=== PATIENT | female | born 1975 | race Caucasian/White ===

== ENCOUNTER 2017-01-02 23:21 | Emergency (ER) | payer OTHER ==
[2017-01-02 23:24] VITALS: BP 138/76; PULSE 84; RESP 16; TEMP 98.6; O2SAT 100
[2017-01-03] MEDS ORDERED: SODIUM CHLOR 0.9% 1000 ML INJ 1,000 ML IV ONE (00:38)
[2017-01-03 01:03] LABS: AUTOMATED NEUTROPHIL # 4.5 TH/MM3 (1.8-7.7); BASOPHIL # 0.1 TH/MM3 (0-0.2); BASOPHIL % 0.9 % (0.0-2.0); EOSINOPHIL # 0.1 TH/MM3 (0-0.4); EOSINOPHIL % 0.9 % (0.0-4.0); HEMATOCRIT 40.8 % (35.0-46.0); HEMO FLAGS DIFF FINAL; LYMPH % 36.2 % (9.0-44.0); MEAN CELL VOLUME 93.8 FL (80.0-100.0); MEAN CORPUSCULAR HEMOGLOBIN 32.3 PG (27.0-34.0); MEAN CORPUSCULAR HGB CONC 34.4 % (32.0-36.0); MONO % 7.5 % (0.0-8.0); NEUT % 54.5 % (16.0-70.0); PLATELET COUNT 238 TH/MM3 (150-450); RED BLOOD COUNT 4.35 MIL/MM3 (4.00-5.30); RED CELL DISTRIBUTION WIDTH 12.8 % (11.6-17.2); WHITE BLOOD COUNT 8.2 TH/MM3 (4.0-11.0)
[2017-01-03 01:04] LABS: BACTERIA, URINE RARE /hpf; BLOOD, URINE NEG (NEG); COMMENT (UR) CULT NOT INDICATED; CULTURE IF INDICATED CULT NOT INDICATED; GLUCOSE,URINE NEG (NEG); KETONE, URINE NEG (NEG); NITRITE,URINE NEG (NEG); SQUAMOUS EPITHELIAL CELL URINE 1 /hpf (0-5); URINE COLOR LIGHT-YELLOW (YELLW/STRAW)
[2017-01-03 01:37] LABS: ALKALINE PHOSPHATASE 59 U/L (45-117); BETA HCG QUANT 22868 MIU/ML (0-5); GLOMERULAR FILTRATION RATE 79 ML/MIN (>89); TOTAL BILIRUBIN ADULT 0.2 MG/DL (0.2-1.0)
[2017-01-03 01:39] LABS: ALT (GPT) 15 U/L (10-53); ANION GAP 7 MEQ/L (5-15); AST (GOT) 17 U/L (15-37); BICARBONATE 26.8 MEQ/L (21.0-32.0); BLOOD UREA NITROGEN 14 MG/DL (7-18); CHLORIDE 103 MEQ/L (98-107); POTASSIUM 3.9 MEQ/L (3.5-5.1); SODIUM (NA) 137 MEQ/L (136-145)
--- NOTE | 2017-01-03 02:21 | PD ---
HPI Chief Complaint: Related Problem Time Seen by Provider: 00:32 Travel History International Travel<30 days: No Contact w/Intl Traveler<30days: No Traveled to known affect area: No History of Present Illness HPI The patient is a 41 year old female with one elective who presents to the [facility] emergency department with a history of vaginal spotting that began earlier this evening. She reports that over the last 2 days she has had some mild cramping. She reports that 2 weeks ago she found out that she was . Her last muscle cycle was November 18. On review of systems, the patient denies having any other vaginal discharge, fevers, cough , congestion, neck pain, chest pain, shortness of breath, abdominal pain, vomiting, diarrhea, urinary symptoms, or neurologic symptoms. [facility] Past Medical History Narrative Medical The patient's past medical history is significant for having sharp tissue down in the pelvis which she reports was removed laparoscopically, history of C- section. Diminished Hearing: No Reproductive: Yes (? ENDOMETRIOSIS) Tetanus Vaccination: Unknown Influenza Vaccination: No ?: : 1 Para: 1 Past Surgical History Narrative Surgical The patient's past surgical history is significant for a , history of laparoscopy for scar tissue removal in her pelvis. Section: Yes (X1) Gynecologic Surgery: Yes (REMOVE SCARRING FROM UTERUS) Social History Alcohol Use: Yes (occasionally) Tobacco Use: No (reportedly quit when she found out she was ) Substance Use: Yes (MARIJUANA) Allergies-Medications (Allergen,Severity, Reaction): Uncoded Allergies: DECONGESTIONS (Allergy, Severe, Irritability/Anxiety, 01/03/17) Reported Meds & Prescriptions Reported Meds & Active Scripts Active No Active Prescriptions or Reported Medications Review of Systems Except as stated in HPI: all other systems reviewed are Neg General / Constitutional: No: Fever Eyes: No: Visual changes HENT: No: Headaches Cardiovascular: No: Chest Pain or Discomfort Respiratory: No: Shortness of Breath Gastrointestinal: No: Abdominal Pain Genitourinary: Positive: Pelvic Pain, Vaginal Bleeding, No: Dysuria, Discharge Musculoskeletal: No: Pain Skin: No Rash Neurologic: No: Weakness Psychiatric: No: Depression Endocrine: No: Polydipsia Hematologic/Lymphatic: No: Easy Bruising Physical Exam Narrative General: The patient is a well-developed well-nourished female in no acute distress. Head and Neck exam: Head is normocephalic atraumatic. Eyes: EOMI, pupils are equal round and reactive to light. Nose: Midline septum with pink mucous membranes Mouth: Dentition unremarkable. Moist mucus membranes. Posterior oropharynx is not erythematous. No tonsillar hypertrophy. Uvula midline. Airway patent. Neck: No palpable lymphadenopathy. No nuchal rigidity. No thyromegaly. Cardiovascular: Regular rate and rhythm without murmurs, gallops, or rubs. Lungs: Clear to auscultation bilaterally. No wheezes, rhonchi, or rales. Abdomen: Soft, without tenderness to palpation in all 4 quadrants of the abdomen. No guarding, rebound, or rigidity. Normal bowel sounds are audible. No tenderness on palpation of McBurney's point. Extremities: No clubbing, cyanosis, or edema. 2+ pulses in all 4 extremities. No calf tenderness on palpation. Back: No spinous process tenderness to palpation. No costovertebral angle tenderness to palpation. Neurologic Exam: Grossly nonfocal. Skin Exam: No rash noted. Intact skin that is warm and dry. Gynecologic exam: The patient was placed in the dorsal lithotomy position. Her external genitalia were examined. She had no evidence of rash or lesions. The speculum was placed into her vagina and the cervix was identified. She had a brown, older appearing blood noted in the posterior vaginal vault, no active bleeding. No cervical friability. On Bimanual exam: she has no cervical motion tenderness. No adnexal tenderness or prominence noted on palpation. No uterine tenderness or enlargement noted on palpation. Data Data Last Documented VS Vital Signs Date Time Temp Pulse Resp B/P (MAP) Pulse Ox O2 Delivery O2 Flow Rate FiO2 01/02/17 23:24 98.6 84 16 138/76 (96) 100 Orders Orders Beta Hcg (Quant/Titer) (01/03/17 00:38) Complete Blood Count With Diff (01/03/17 00:38) Comprehensive Metabolic Panel (01/03/17 00:38) Gc And Chlamydia Pcr (01/03/17 00:38) Complete Rh (01/03/17 00:38) Wet Prep Profile (01/03/17 00:38) Urinalysis - C+S If Indicated (01/03/17 00:38) Iv Access Insert/Monitor (01/03/17 00:38) Ecg Monitoring (01/03/17 00:38) Sodium Chlor 0.9% 1000 Ml Inj (Ns 1000 M (01/03/17 00:38) Ed Urine Pregnancytest Poc (01/03/17 00:38) Us Pelvis (Ques Preg/Ectopic) (01/03/17 ) Ed Discharge Order (01/03/17 03:37) Labs Laboratory Tests Test 01/03/17 00:45 01/03/17 01:20 White Blood Count 8.2 TH/MM3 Red Blood Count 4.35 MIL/MM3 Hemoglobin 14.0 GM/DL Hematocrit 40.8 % Mean Corpuscular Volume 93.8 FL Mean Corpuscular Hemoglobin 32.3 PG Mean Corpuscular Hemoglobin Concent 34.4 % Red Cell Distribution Width 12.8 % Platelet Count 238 TH/MM3 Mean Platelet Volume 8.5 FL Neutrophils (%) (Auto) 54.5 % Lymphocytes (%) (Auto) 36.2 % Monocytes (%) (Auto) 7.5 % Eosinophils (%) (Auto) 0.9 % Basophils (%) (Auto) 0.9 % Neutrophils # (Auto) 4.5 TH/MM3 Lymphocytes # (Auto) 3.0 TH/MM3 Monocytes # (Auto) 0.6 TH/MM3 Eosinophils # (Auto) 0.1 TH/MM3 Basophils # (Auto) 0.1 TH/MM3 CBC Comment DIFF FINAL Differential Comment Urine Color LIGHT-YELLOW Urine Turbidity CLOUDY Urine pH 8.0 Urine Specific [place] 1.017 Urine Protein NEG mg/dL Urine Glucose (UA) NEG mg/dL Urine Ketones NEG mg/dL Urine Occult Blood NEG Urine Nitrite NEG Urine Bilirubin NEG Urine Urobilinogen LESS THAN 2.0 MG/DL Urine Leukocyte Esterase NEG Urine WBC LESS THAN 1 /hpf Urine Squamous Epithelial Cells 1 /hpf Urine Amorphous Sediment OCC Urine Bacteria RARE /hpf Microscopic Urinalysis Comment CULT NOT INDICATED Blood Urea Nitrogen 14 MG/DL Creatinine 0.81 MG/DL Random Glucose 82 MG/DL Total Protein 7.9 GM/DL Albumin 4.0 GM/DL Calcium Level 9.3 MG/DL Alkaline Phosphatase 59 U/L Aspartate Amino Transf (AST/SGOT) 17 U/L Alanine Aminotransferase (ALT/SGPT) 15 U/L Total Bilirubin 0.2 MG/DL Sodium Level 137 MEQ/L Potassium Level 3.9 MEQ/L Chloride Level 103 MEQ/L Carbon Dioxide Level 26.8 MEQ/L Anion Gap 7 MEQ/L Estimat Glomerular Filtration Rate 79 ML/MIN Human Chorionic Gonadotropin, Quant 76138 MIU/ML Clue Cells (Wet Prep) NONE SEEN Vaginal Trichomonas (Wet Prep) NONE SEEN Vaginal Yeast (Wet Prep) NONE SEEN MDM Medical Decision Making Medical Screen Exam Complete: Yes Emergency Medical Condition: Yes Medical Record Reviewed: Yes Interpretation(s) Last Impressions Pelvis Ultrasound 01/03/17 0000 Signed Impressions: Service Date/Time: Tuesday, January 03, 2017 01:45 - CONCLUSION: 1. Intrauterine at 6 weeks Darrius Gomez MD Differential Diagnosis Threatened miscarriage, versus subchorionic hemorrhage, versus ectopic , versus postcoital bleeding Narrative Course During the course of the patients emergency department visit, the patients history, examination, and differential diagnosis were reviewed with the patient. The patient had IV access obtained and blood work sent for analysis. The patient was placed on a room designer with oximetry and blood pressure monitoring. An ultrasound of the pelvis was ordered. The patient was initially provided normal saline 1 L IV fluid bolus. The patients laboratory studies were reviewed and remarkable for a CBC that is within normal limits. CMP is remarkable for a GFR 79, quantitative beta hCG is 22,868, urinalysis shows rare bacteria. Wet prep is negative. Blood type is A+ . Radiology studies were reviewed and remarkable for an ultrasound that reveals an intrauterine that is at 6 weeks with heart activity. The patient is resting comfortably and feels better, is alert and in no distress. The patients results and examination findings were discussed with the patient. The repeat examination is unremarkable and benign. The history, exam, diagnostic testing, and current condition do not suggest any significant pathology to warrant further testing, continued ED treatment, admission, or surgical evaluation at this point. The vital signs have been stable. The patient does not have uncontrollable pain, intractable vomiting, or other significant symptoms. The patient's condition is stable and appropriate for discharge. The patient will pursue further outpatient evaluation with a primary care physician or other designated or consulting physician as indicated in the discharge instructions. The patient expressed understanding and was agreeable with this plan. Diagnosis Primary Impression: Threatened miscarriage Referrals: [facility] 2 days Public Relations Account Supervisor 2 days Patient Instructions: General Instructions, Threatened Miscarriage (ED) Additional Instructions: The patient is instructed to have a repeat quantitative beta hCG in 2 days. The patient will be given an outpatient lab slip to obtain this. Med/Other Pt SpecificInfo: No Meds Exist/No RX given Scripts No Active Prescriptions or Reported Meds Disposition: 01 DISCHARGE HOME Condition: Esther Hernández MD Jan 03, 2017 02:21
--- NOTE | 2017-01-03 03:07 | RADRPT ---
EXAM DATE/TIME: 01/03/2017 01:45 [place] COMPARISON: No previous studies available for comparison. INDICATIONS : Pelvic cramping and spotting. LAB(S): Beta-hC,868 MEDICAL HISTORY : . Endometriosis. Substance use. SURGICAL HISTORY : section. Laprascopic removal of uterine scarring. ENCOUNTER: Initial ACUITY: 1 day PAIN SCORE: 3/10 LOCATION: Bilateral pelvis MEASUREMENTS: UTERUS: 9.5 x 5.3 x 4.3 cm ENDOMETRIAL STRIPE: 9 mm RIGHT OVARY: 1.6 x 1.2 x 2.2 cm LEFT OVARY: 2.1 x 2.0 x 2.1 cm FREE FLUID: No CROWN RUMP LENGTH: 0.3 cm = 6 WKS 0 DAYS FHR: 113 BPM FINDINGS: Ultrasound of the pelvis via transabdominal transvaginal approach demonstrates a single viable intrau terine with a crown-rump length of 3 m corresponding to a 6 week gestation Cardiac activity is identified at 113 beats per minute. No free fluid or adnexal masses are identified. Examination of the right ovary demonstrates no abnormality. Examination of the left ovary demonstrates a left ovarian cyst possibly a corpus luteum cyst.. CONCLUSION: 1. Intrauterine at 6 weeks Darrius Gomez MD on January 03, 2017 at 3:03 Board Certified Radiologist. This report was verified electronically.
[2017-01-03 06:02] LABS: CHLAMYDIA PCR NOT DETECTED (NOT DETECT); NEISSERIA PCR NOT DETECTED (NOT DETECT)
== END 2017-01-03 04:42 | disposition home or self-care (01) ==
LOC: NEPC 23:21
DX: O20.0 Threatened abortion (principal); Z3A.01 Less than 8 weeks gestation of pregnancy
CPT/HCPCS: 76700; 80053; 81001; 84702; 84703; 85025; 86901; 87210; 87491; 87591; 96360; 99284; J7030

== ENCOUNTER 2017-03-19 09:21 | Emergency (ER) | payer BC, OTHER ==
[~2017-03-19] VITALS: Ht 157.5 cm; Wt 53.0 kg
[2017-03-19 09:24] VITALS: BP 111/61; PULSE 114; RESP 18; TEMP 99.8; O2SAT 99
[2017-03-19] MEDS ORDERED: SODIUM CHLOR 0.9% 1000 ML INJ 1,000 ML IV ONE (09:45)
[2017-03-19 09:48] VITALS: BP 117/55; PULSE 115; RESP 19; O2SAT 98
[2017-03-19 10:00] LABS: AUTOMATED NEUTROPHIL # 4.8 TH/MM3 (1.8-7.7); BASOPHIL % 0.3 % (0.0-2.0); HEMOGLOBIN 11.5 GM/DL (11.6-15.3); LYMPHOCYTE # 0.4 TH/MM3 (1.0-4.8); MEAN CELL VOLUME 94.7 FL (80.0-100.0); MEAN CORPUSCULAR HGB CONC 34.9 % (32.0-36.0); MEAN PLATELET VOLUME 8.4 FL (7.0-11.0); MONO % 8.2 % (0.0-8.0); MONOCYTE # 0.5 TH/MM3 (0-0.9); NEUT % 84.5 % (16.0-70.0); PLATELET COUNT 184 TH/MM3 (150-450); RED BLOOD COUNT 3.49 MIL/MM3 (4.00-5.30); RED CELL DISTRIBUTION WIDTH 13.9 % (11.6-17.2); WHITE BLOOD COUNT 5.7 TH/MM3 (4.0-11.0)
[2017-03-19 10:02] LABS: AMORPHOUS SEDIMENT, URINE OCC; BACTERIA, URINE OCC /hpf; BILIRUBIN, URINE NEG (NEG); BLOOD, URINE NEG (NEG); GLUCOSE,URINE NEG (NEG); HYALINE CAST, URINE 1 /lpf (RARE); KETONE, URINE 80 mg/dL (NEG); MUCUS URINE FEW /lpf (OCC); NITRITE,URINE NEG (NEG); SQUAMOUS EPITHELIAL CELL URINE 3 /hpf (0-5); URINE COLOR YELLOW (YELLW/STRAW); URINE LEUKOCYTE ESTERASE NEG (NEG)
--- NOTE | 2017-03-19 10:12 | PD ---
HPI Chief Complaint: Flank/Kidney Pain Time Seen by Provider: 09:42 Travel History International Travel<30 days: No Contact w/Intl Traveler<30days: No Traveled to known affect area: No History of Present Illness HPI 41-year-old at 17 weeks presents with nasal congestion, low back, fever and general ill feeling over the past couple of days. She states today she felt worse. She states her last Tylenol was yesterday. She states that she had an ultrasound yesterday for gender and everything was okay. She states no other concurrent complaints. She feels worse when she moves around. She denies other modifying factors. She denies any abdominal pain, vaginal bleeding or issues with the baby as well. She states Dr. marie is her chargemaster analyst. [facility] Past Medical History Diminished Hearing: No Reproductive: Yes (ENDOMETRIOSIS) Tetanus Vaccination: Unknown Influenza Vaccination: No ?: LMP: 11/2016 : 1 Para: 1 Past Surgical History Section: Yes (X1) Gynecologic Surgery: Yes (EX LAP) Social History Alcohol Use: Yes (occasionally) Tobacco Use: No Substance Use: Yes (MARIJUANA) Allergies-Medications (Allergen,Severity, Reaction): Uncoded Allergies: DECONGESTIONS (Allergy, Severe, Irritability/Anxiety, 01/03/17) Reported Meds & Prescriptions Reported Meds & Active Scripts Active Keflex (Cephalexin) 500 Mg Cap 500 Mg PO Q12H 7 Days Review of Systems Except as stated in HPI: all other systems reviewed are Neg Physical Exam Narrative GENERAL: Well-nourished, well-developed patient. well appearing SKIN: Warm and dry. HEAD: Normocephalic and atraumatic. EYES: No injection or drainage. ENT: No nasal drainage noted. rhinorrhea NECK: Supple, trachea midline. CARDIOVASCULAR: Regular rate and rhythm RESPIRATORY: Breath sounds equal bilaterally. No accessory muscle use. GASTROINTESTINAL: Abdomen soft, non-tender, nondistended. EXTREMITIES: No edema. BACK: Nontender without obvious deformity. no cvat NEUROLOGICAL: Awake and alert. Motor and sensory grossly within normal limits. Normal speech. Data Data Last Documented VS Vital Signs Date Time Temp Pulse Resp B/P (MAP) Pulse Ox O2 Delivery O2 Flow Rate FiO2 03/19/17 11:08 98 03/19/17 10:57 106 17 Room Air 03/19/17 09:24 99.8 Orders Orders Complete Blood Count With Diff (03/19/17 09:42) Comprehensive Metabolic Panel (03/19/17 09:42) Lactic Acid Sepsis Protocol (03/19/17 09:42) Urinalysis - C+S If Indicated (03/19/17 09:42) Influenzae A/B Antigen (03/19/17 09:42) Blood Culture (03/19/17 09:42) Ecg Monitoring (03/19/17 09:42) Iv Access Insert/Monitor (03/19/17 09:42) Oximetry (03/19/17 09:42) Sodium Chlor 0.9% 1000 Ml Inj (Ns 1000 M (03/19/17 09:45) Urine Culture (03/19/17 09:48) Ceftriaxone Inj (Rocephin Inj) (03/19/17 10:15) Acetaminophen (Tylenol) (03/19/17 10:15) Ed Discharge Order (03/19/17 10:46) Labs Laboratory Tests Test 03/19/17 09:45 03/19/17 09:48 Lactic Acid Level 0.8 mmol/L White Blood Count 5.7 TH/MM3 Red Blood Count 3.49 MIL/MM3 Hemoglobin 11.5 GM/DL Hematocrit 33.0 % Mean Corpuscular Volume 94.7 FL Mean Corpuscular Hemoglobin 33.0 PG Mean Corpuscular Hemoglobin Concent 34.9 % Red Cell Distribution Width 13.9 % Platelet Count 184 TH/MM3 Mean Platelet Volume 8.4 FL Neutrophils (%) (Auto) 84.5 % Lymphocytes (%) (Auto) 7.0 % Monocytes (%) (Auto) 8.2 % Eosinophils (%) (Auto) 0.0 % Basophils (%) (Auto) 0.3 % Neutrophils # (Auto) 4.8 TH/MM3 Lymphocytes # (Auto) 0.4 TH/MM3 Monocytes # (Auto) 0.5 TH/MM3 Eosinophils # (Auto) 0.0 TH/MM3 Basophils # (Auto) 0.0 TH/MM3 CBC Comment DIFF FINAL Differential Comment Urine Color YELLOW Urine Turbidity HAZY Urine pH 8.0 Urine Specific [place] 1.012 Urine Protein NEG mg/dL Urine Glucose (UA) NEG mg/dL Urine Ketones 80 mg/dL Urine Occult Blood NEG Urine Nitrite NEG Urine Bilirubin NEG Urine Urobilinogen LESS THAN 2.0 MG/DL Urine Leukocyte Esterase NEG Urine RBC LESS THAN 1 /hpf Urine WBC 1 /hpf Urine Squamous Epithelial Cells 3 /hpf Urine Amorphous Sediment OCC Urine Bacteria OCC /hpf Urine Hyaline Casts 1 /lpf Urine Mucus FEW /lpf Microscopic Urinalysis Comment CATH-CULTURE IND Blood Urea Nitrogen 5 MG/DL Creatinine 0.44 MG/DL Random Glucose 89 MG/DL Total Protein 6.9 GM/DL Albumin 3.2 GM/DL Calcium Level 8.8 MG/DL Alkaline Phosphatase 46 U/L Aspartate Amino Transf (AST/SGOT) 19 U/L Alanine Aminotransferase (ALT/SGPT) 24 U/L Total Bilirubin 0.2 MG/DL Sodium Level 136 MEQ/L Potassium Level 3.4 MEQ/L Chloride Level 103 MEQ/L Carbon Dioxide Level 23.9 MEQ/L Anion Gap 9 MEQ/L Estimat Glomerular Filtration Rate 159 ML/MIN [facility] Medical Decision Making Medical Screen Exam Complete: Yes Emergency Medical Condition: Yes Medical Record Reviewed: Yes (pmh confirmed) Interpretation(s) ua with signs of infection CBC & BMP Diagram 03/19/17 09:48 Total Protein 6.9, Albumin 3.2 L, Calcium Level 8.8, Alkaline Phosphatase 46, Aspartate Amino Transf (AST/SGOT) 19, Alanine Aminotransferase (ALT/SGPT) 24, Total Bilirubin 0.2 Differential Diagnosis UTI, pyelonephritis, URI, kidney stone Narrative Course Emergency Department Pelvic ultrasound was performed with patient consent. The curvilinear probe was used in the transverse and sagittal views within the suprapubic region revealing single intrauterine . heart rate was 152. Good movement, patient without any abdominal pain or bleeding. We'll check blood work, urinalysis, influenza and dose with IV fluids and reevaluate Will dose with Tylenol for pain. Will give IV fluids and Rocephin and reevaluate patient with uti, no cvat, heart rate improved with ivf, temp here less then 100 without meds at home, will discuss with ob Patient denies any new complaints and states that they are feeling better. Patient happy with care, all questions answered. Patient knows that follow up is incumbent on them and to return to the emergency room immediately if new or worsening symptoms develop. Patient given strict return precautions, vitals reviewed and are normal, agrees to further workup as an outpatient. Physician Communication Physician Communication ob hospitalist states to dc on keflex and have follow closely with dr akers Diagnosis Primary Impression: Upper respiratory infection Qualified Codes: J06.9 - Acute upper respiratory infection, unspecified Additional Impressions: UTI (urinary tract infection) Qualified Codes: N39.0 - Urinary tract infection, site not specified Qualified Codes: Z3A.17 - 17 weeks gestation of Patient Instructions: General Instructions Additional Instructions: return as needed, follow with your OB monday, keep hydrated, tylenol as needed Med/Other Pt SpecificInfo: Prescription(s) given Scripts Cephalexin (Keflex) 500 Mg Cap 500 MG PO Q12H for Infection for 7 Days, #14 CAP 0 Refills Prov: Alessandra Power MD 03/19/17 Disposition: 01 DISCHARGE HOME Condition: Stable Alessandra Power MD Mar 19, 2017 10:12
[2017-03-19] MEDS ORDERED: ACETAMINOPHEN 325 MG TAB PO ONE (10:15)
[2017-03-19] MEDS ORDERED: cefTRIAXone INJ 1,000 MG in SODIUM CHLORIDE 0.9% INJ 100 ML IV ONE (10:15)
[2017-03-19 10:23] LABS: ALBUMIN 3.2 GM/DL (3.4-5.0); ALT (GPT) 24 U/L (10-53); AST (GOT) 19 U/L (15-37); BICARBONATE 23.9 MEQ/L (21.0-32.0); BLOOD UREA NITROGEN 5 MG/DL (7-18); CALCIUM 8.8 MG/DL (8.5-10.1); CHLORIDE 103 MEQ/L (98-107); CREATININE 0.44 MG/DL (0.50-1.00); GLOMERULAR FILTRATION RATE 159 ML/MIN (>89); GLUCOSE,RANDOM 89 MG/DL (74-106); SODIUM (NA) 136 MEQ/L (136-145)
[2017-03-19 10:24] LABS: ALKALINE PHOSPHATASE 46 U/L (45-117); TOTAL BILIRUBIN ADULT 0.2 MG/DL (0.2-1.0); TOTAL PROTEIN 6.9 GM/DL (6.4-8.2)
[2017-03-19 10:44] VITALS: PULSE 98
[2017-03-19] MEDS ORDERED: CEPH-460 PO (10:45)
[2017-03-19 10:57] VITALS: BP 103/56; PULSE 106; RESP 17; O2SAT 97
== END 2017-03-19 11:08 | disposition home or self-care (01) ==
LOC: NEPC 09:21
DX: O99.512 Diseases of the respiratory system complicating pregnancy, second trimester (principal); J06.9 Acute upper respiratory infection, unspecified; O23.42 Unspecified infection of urinary tract in pregnancy, second trimester; B96.89 Other specified bacterial agents as the cause of diseases classified elsewhere; Z3A.17 17 weeks gestation of pregnancy
CPT/HCPCS: 80053; 81001; 83605; 85025; 87040; 87086; 87804; 96361; 96365; 99285; J0696; J7030

== ENCOUNTER 2017-08-17 05:38 | Inpatient (IN) | payer BC ==
[~2017-08-17] VITALS: Ht 157.5 cm; Wt 71.0 kg
[~2017-08-17 05:38] MED LIST: CEPH-460 PO
[2017-08-17 06:52] LABS: BASOPHIL % 0.6 % (0.0-2.0); EOSINOPHIL # 0.1 TH/MM3 (0-0.4); EOSINOPHIL % 0.9 % (0.0-4.0); HEMATOCRIT 29.9 % (35.0-46.0); HEMOGLOBIN 10.3 GM/DL (11.6-15.3); LYMPH % 23.6 % (9.0-44.0); LYMPHOCYTE # 1.8 TH/MM3 (1.0-4.8); MEAN CELL VOLUME 87.2 FL (80.0-100.0); MEAN CORPUSCULAR HGB CONC 34.4 % (32.0-36.0); MONO % 9.9 % (0.0-8.0); MONOCYTE # 0.8 TH/MM3 (0-0.9); PLATELET COUNT 191 TH/MM3 (150-450); RED BLOOD COUNT 3.43 MIL/MM3 (4.00-5.30); RED CELL DISTRIBUTION WIDTH 14.1 % (11.6-17.2); WHITE BLOOD COUNT 7.7 TH/MM3 (4.0-11.0)
[2017-08-17] MEDS ORDERED: PREN1TAB45 PO (06:56)
[2017-08-17] MEDS ORDERED: ceFAZolin 1,000 MG/NS 100 ML IV SCH ×2 (07:00)
[2017-08-17] MEDS ORDERED: LACTATED RINGER'S 1000 ML IV ONE (07:00)
[2017-08-17] MEDS ORDERED: CITRIC ACID-SODIUM CITRATE LIQ 30 ML UDC PO SCH (07:00)
[2017-08-17 07:04] LABS: BACTERIA, URINE RARE /hpf; BILIRUBIN, URINE NEG (NEG); BLOOD, URINE NEG (NEG); GLUCOSE,URINE NEG (NEG); KETONE, URINE NEG (NEG); MUCUS URINE FEW /lpf (OCC); NITRITE,URINE NEG (NEG); SQUAMOUS EPITHELIAL CELL URINE 5 /hpf (0-5); URINE COLOR YELLOW (YELLW/STRAW); URINE LEUKOCYTE ESTERASE SMALL (NEG)
[2017-08-17] MEDS: LACTATED RINGER'S 1000 ML IV SCH (08:45)
--- NOTE | 2017-08-17 08:51 | HHI.HP ---
HPI Chief Complaint term IUP at 39 weeks with prior section desires repeat with PPTL Date Seen: August 17, 2017 Time Seen: 08:48 Travel History International Travel<30 Days: No Contact w/Intl Traveler<30Days: No Known Affected Area: No History of Present Illness HPI 41 yo wf with LMP 11/23/16 and EDC 08/24/17 at 39 0/7 weeks. PNC began at 6 weeks No PTL, diabetes or HTN Previous section for persistent breech. no N,v, DE S[place] blurred vision or RUQT No leaking or bleeding or UCS GFM Weeks Gestation: 39 Para: 1 : 2 Last Menstrual Period: August 17, 2017 History Past Medical History Medical History: Denies Significant Hx Obstetric History Obstetric History prior term section for breech Family History Family History: Negative Social History Alcohol Use: No Tobacco Use: Yes Substance Abuse: No Allergies-Medications (Allergen,Severity, Reaction): Uncoded Allergies: DECONGESTIONS (Allergy, Severe, Irritability/Anxiety, 01/03/17) decongestants (Allergy, Mild, agitation, 08/17/17) Home Meds Reported Medications Vit,Calc76/Iron/Folic (Pnv 29-1 Tablet) 29 Mg Iron-1 Mg Tablet, 1 TAB PO DAILY 08/17/17 Discontinued Scripts Cephalexin (Keflex) 500 Mg Cap, 500 MG PO Q12H for Infection for 7 Days, #14 CAP 0 Refills Prov:Alessandra Power MD 03/19/17 Review of Systems General / Constitutional: No: Fever, Weight Gain, Chills, Other Eyes: No: Diploplia, Blurred Vision, Visual changes, Pain, Photophobia HENT: No: Headaches, Vertigo, Lightheadedness Cardiovascular: No: Irregular Rhythm, Chest Pain or Discomfort, Palpitations, Tachycardia, Syncope, Varicosities, Edema, Cyanosis Respiratory: No: Cough, Short of Breath, Other Gastrointestinal: No: Nausea, Vomiting, Diarrhea Genitourinary: No: Decreased Urinary Output, Oliguria Musculoskeletal: No: Limited ROM, Weakness, Cramping, Edema, Pain Skin: No Rash, No Itching, No Dryness, No Lumps, No Change in Pigmentation, No Change in Nails, No Alopecia, No Lesions Neurologic: No: Weakness, Dizziness, Syncope, Focal Abnormalities, Coordination Problem, Headache, Slurred Speech, Seizures Psychiatric: No: Depression, Suicidal Ideations, Homicidal Ideation Endocrine: No: Heat Intolerance, Cold Intolerance, Polydipsia, Polyuria, Other Physical Exam Narrative GENERAL: Well-nourished, well-developed patient. SKIN: Warm and dry. HEAD: Normocephalic and atraumatic. EYES: No scleral icterus. No injection or drainage. ENT: No nasal drainage noted. Mucous membranes pink. Airway patent. NECK: Supple, trachea midline. No JVD. CARDIOVASCULAR: Regular rate and rhythm without murmurs, gallops, or rubs. RESPIRATORY: Breath sounds equal bilaterally. No accessory muscle use. BREASTS: Bilateral exam showed no masses , no retractions, no nipple discharge. ABDOMEN/GI: Abdomen soft, non-tender, bowel sounds present, no rebound, no guarding 38 cm fingertip/50% anterior EFW 7 pounds question if breech on exam known posterior placenta EXTREMITIES: No cyanosis or edema. BACK: Nontender without obvious deformity. No CVA tenderness. NEUROLOGICAL: Awake and alert. Motor and sensory grossly within normal limits. Five out of 5 muscle strength in all muscle groups. Normal speech. Caprini VTE Risk Assessment Caprini VTE Risk Assessment: No/Low Risk (score <= 1) Caprini Risk Assessment Model Point Value = 1 Point Value = 2 Point Value = 3 Point Value = 5 Age 41-60 Minor surgery BMI > 25 kg/m2 Swollen legs Varicose veins or History of unexplained or recurrent spontaneous Oral contraceptives or hormone replacement Sepsis (< 1 month) Serious lung disease, including pneumonia (< 1 month) Abnormal pulmonary function Acute myocardial infarction Congestive heart failure (< 1 month) History of inflammatory bowel disease Medical patient at bed rest Age 61-74 Arthroscopic surgery Major open surgery (> 45 min) Laparoscopic surgery (> 45 min) Malignancy Confined to bed (> 72 hours) Immobilizing plaster cast Central venous access Age >= 75 History of VTE Family history of VTE Factor V Leiden Prothrombin [id number] Lupus anticoagulant Anticardiolipin antibodies Elevated serum homocysteine Heparin-induced thrombocytopenia Other congenital or acquired thrombophilia Stroke (< 1 month) Elective arthroplasty Hip, pelvis, or leg fracture Acute spinal cord injury (< 1 month) Prophylaxis Regimen Total Risk Factor Score Risk Level Prophylaxis Regimen 0-1 Low Early ambulation 2 Moderate Order ONE of the following: *Sequential Compression Device (SCD) *Heparin 5000 units SQ BID 3-4 Higher Order ONE of the following medications: *Heparin 5000 units SQ TID *Enoxaparin/Lovenox 40 mg SQ daily (WT < 150 kg, CrCl > 30 mL/min) *Enoxaparin/Lovenox 30 mg SQ daily (WT < 150 kg, CrCl > 10-29 mL/min) *Enoxaparin/Lovenox 30 mg SQ BID (WT < 150 kg, CrCl > 30 mL/min) AND/OR *Sequential Compression Device (SCD) 5 or more Highest Order ONE of the following medications: *Heparin 5000 units SQ TID (Preferred with Epidurals) *Enoxaparin/Lovenox 40 mg SQ daily (WT < 150 kg, CrCl > 30 mL/min) *Enoxaparin/Lovenox 30 mg SQ daily (WT < 150 kg, CrCl > 10-29 mL/min) *Enoxaparin/Lovenox 30 mg SQ BID (WT < 150 kg, CrCl > 30 mL/min) AND *Sequential Compression Device (SCD) Data Data Orders Orders Admit To Inpatient (08/17/17 ) Vital Signs (Adult) .ON ADMISSION (08/17/17 06:22) Activity Oob Ad Kelsey (08/17/17 06:22) Heart (08/17/17 06:22) Urinary Catheter Management BROCK.Q8H (08/17/17 06:22) ^ Preps (08/17/17 06:22) Scd / Yassine / Foot Pump BROCK.QSHIFT (08/17/17 06:22) ^ Ultrasound For Locatio (08/17/17 06:22) Diet Npo (08/17/17 Breakfast) Type And Screen (08/17/17 06:22) Complete Blood Count With Diff (08/17/17 06:22) Urinalysis - C+S If Indicated (08/17/17 06:22) Drug Screen, Random Urine (08/17/17 06:22) Specimen To Be Collected PRN (08/17/17 06:22) Lactated Ringer's 1000 Ml Inj (Lr 1000 M (08/17/17 07:00) Lactated Ringer's 1000 Ml Inj (Lr 1000 M (08/17/17 07:00) Citric Acid-Sodium Citrate Liq (Bicitra (08/17/17 07:00) Cefazolin Inj (Ancef Inj) (08/17/17 07:00) Labs Laboratory Tests Test 08/17/17 06:15 White Blood Count 7.7 Red Blood Count 3.43 Hemoglobin 10.3 Hematocrit 29.9 Mean Corpuscular Volume 87.2 Mean Corpuscular Hemoglobin 30.0 Mean Corpuscular Hemoglobin Concent 34.4 Red Cell Distribution Width 14.1 Platelet Count 191 Mean Platelet Volume 10.0 Neutrophils (%) (Auto) 65.0 Lymphocytes (%) (Auto) 23.6 Monocytes (%) (Auto) 9.9 Eosinophils (%) (Auto) 0.9 Basophils (%) (Auto) 0.6 Neutrophils # (Auto) 5.0 Lymphocytes # (Auto) 1.8 Monocytes # (Auto) 0.8 Eosinophils # (Auto) 0.1 Basophils # (Auto) 0.0 CBC Comment DIFF FINAL Differential Comment Urine Color YELLOW Urine Turbidity CLEAR Urine pH 7.0 Urine Specific [place] 1.016 Urine Protein TRACE Urine Glucose (UA) NEG Urine Ketones NEG Urine Occult Blood NEG Urine Nitrite NEG Urine Bilirubin NEG Urine Urobilinogen LESS THAN 2.0 Urine Leukocyte Esterase SMALL Urine RBC 1 Urine WBC LESS THAN 1 Urine Squamous Epithelial Cells 5 Urine Bacteria RARE Urine Mucus FEW Urine Yeast with Hyphae RARE Urine Yeast (Budding) RARE Microscopic Urinalysis Comment CULT NOT INDICATED Urine Opiates Screen NEG Urine Barbiturates Screen NEG Urine Amphetamines Screen NEG Urine Benzodiazepines Screen NEG Urine Cocaine Screen NEG Urine Cannabinoids Screen NEG Abril Terry MD August 17, 2017 08:51
[2017-08-17] MEDS ORDERED: MORPHINE SULFATE PF 5 MG/10 ML VIAL ONE (09:33)
[2017-08-17] MEDS ORDERED: ACETAMINOPHEN 1000 MG/100 ML 100 ML IV ONE ×2 (09:33→11:00)
[2017-08-17] MEDS ORDERED: EPIDURAL-DIPHENHYDRAMINE HCL 50 MG/ML VIAL IV PUSH PRN (09:44)
[2017-08-17] MEDS ORDERED: EPIDURAL-DIPHENHYDRAMINE HCL 50 MG CAP PO PRN (09:44)
[2017-08-17] MEDS ORDERED: EPIDURAL-DO NOT ADMINISTER ANTICOAGULANTS PRN (09:44)
[2017-08-17] MEDS ORDERED: EPIDURAL-NO SYSTEMIC NARCOTICS PRN (09:44)
[2017-08-17] MEDS ORDERED: EPIDURAL-NALOXONE HCL 0.4 MG/ML AMP IV PUSH PRN (09:44)
[2017-08-17] MEDS ORDERED: BUPIVACAINE HCL PF 0.25% 10 ML VIAL ONE (09:58)
--- NOTE | 2017-08-17 10:56 | PD.OB.DELI ---
Procedure Note Section Procedure Performed by Abril Terry Procedure: Repeat Low Transverse Sec, Other (bilateral fimbriectomy) Indication for delivery: Desired elective repeat Informed consent obtained: For anesthesia, For procedure, Other (PPTL) Confirmed correct: Patient, Procedure, Site, Time-out taken Anesthesia: Spinal Medication prior to procedure: As documented in eMAR Monitoring during procedure: Blood pressure monitoring Urinary catheter: Inserted using sterile technique, To dependent drainage Sterile preparation: Duraprep, In usual fashion Position: Supine with wedge to right side Operative Features Skin Incision: Pfannenstiel Uterine Incision: Low transverse w/knife / blunt ext Membranes Ruptured: Artificially Presentation: Occiput anterior Delivery date: August 17, 2017 Delivery time: 10:56 Delivery of : Assisted Infant: Male One Minute : 9 Five Minute : 9 Weight: 6 14 Status of : Viable, Cord blood, Nursery present Placenta delivered: Intact Medications: Antibiotics, Oxytocin Estimated blood loss: 500 Procedure tolerated: Well Maternal Condition: Stable Condition: Stable Procedure in detail dictated Abril Terry MD August 17, 2017 10:56
[2017-08-17] MEDS ORDERED: ACETAMINOPHEN 325 MG TAB PO PRN (11:00)
[2017-08-17] MEDS ORDERED: ONDANSETRON ODT 4 MG TAB PO PRN (11:00)
[2017-08-17] MEDS ORDERED: OXYTOCIN 30 UNITS-500ML PREMIX 500 ML IV ONE (11:00)
[2017-08-17] MEDS ORDERED: SODIUM CHLORIDE 0.9% FLUSH 10 ML FLUSH IV FLUSH PRN (11:00)
[2017-08-17] MEDS ORDERED: SIMETHICONE 80 MG CHEWABLE TAB PO PRN (11:00)
--- NOTE | 2017-08-17 11:15 | HHI.DCPOC ---
Discharge Care Plan Report Symptoms to Your Doctor -Temperature above 100.5 degrees -Redness, of incision or excessive or foul smelling drainage -Unusual pain or calf pain -Increased vaginal bleeding -Painful or difficulty urinating -Feelings of extreme sadness or anxiety after 2 weeks Goals to Promote Your Health * To prevent worsening of your condition and complications * To maintain your health at the optimal level Directions to Meet Your Goals Take your medications as prescribed Follow your dietary instruction Follow activity as directed Ensure plenty of rest for recovery Drink fluids for hydration Keep your appointments as scheduled Take your immunizations and boosters as scheduled If your symptoms worsen call your PCP, if no PCP go to Urgent Care Center or Emergency Room Smoking is Dangerous to Your Health. Avoid second hand smoke Call the 24-hour crisis hotline for domestic abuse at Abril Terry MD August 17, 2017 11:15
--- NOTE | 2017-08-17 11:24 | MP ---
cc: Abril Terry MD DATE OF OPERATION: 08/17/2017 DATE OF PROCEDURE: 08/17/2017 PREOPERATIVE DIAGNOSES: Term , prior section and desire for sterilization and repeat section. POSTOPERATIVE DIAGNOSES: Term , prior section and desire for sterilization and repeat section, delivered. PROCEDURE PERFORMED: Repeat low transverse segment section and bilateral fimbriectomy. ANESTHESIA: Spinal Duramorph. SURGEON: Abril Terry MD BRAZER INDUCTION: Hank Fisher MS4 FINDINGS: A living male with a weight of 6 pounds 14 ounces was delivered from left occiput anterior with clear fluid and loose nuchal cord. His apgars were 9 at 1 and 9 at 5. Cord blood was obtained and cord clamping was delayed 45 seconds. Placenta was posterior with a 3-vessel cord. Estimated blood loss was average. Both tubes were removed from the mid portion of the tube to the fimbriated area to reduce risk of later cancer and mom tolerated the procedure well. DESCRIPTION OF PROCEDURE: The patient was identified as Chetna Bautista. She was walked to the back and a spinal was placed. She was prepped and draped in the usual sterile fashion in the dorsal supine position with weight off the vena cava. Sequentials were placed. A Armijo was in the bladder. She had received 1 gram Ancef prior to incision. A timeout was performed and confirmed that she did want her tubes tied. After assuring adequate analgesia, a Pfannenstiel incision was made through the previous incision and carried down with the Bovie to the rectus fascia. The rectus fascia was incised with the Bovie and then the superior edge was grasped with straight Kochers and dissected off the underneath rectus muscle. Inferior edge was treated the same and then the rectus muscle was bluntly in the midline and the parietal peritoneum entered sharply and a bladder flap created off the lower uterine segment. Incision was made into the intrauterine cavity, which was bluntly extended in a vertical fashion and then the infant was delivered with the findings as noted above. The cord was clamped x 2 after 45 seconds. It was cut and then the infant was handed to the neonatology team in attending. The placenta was delivered manually intact with a 3-vessel cord. The uterus was exteriorized, cleaned with a lap sponge and closed with chromic in a running interlocking fashion and a second horizontal imbricating suture. Then, the right tube was elevated and transected in the midportion and then pedicles created to the fimbriated portion, which was somewhat scarred onto the ovary and then this entire distal half of the tube was removed and the area rendered hemostatic. This was repeated on the left side without difficulty. The uterus was then carefully placed into the intra-abdominal cavity. The tubal sites were then checked for hemostasis. The incision was checked for hemostasis. Irrigation was performed. Then, the rectus muscle was approximated with Vicryl. The fascia was closed with #1 Vicryl in a running noninterlocking fashion. The subcutaneous layer was closed with 3-0 plain and the skin was closed with 4-0 Vicryl on a Norm needle. Estimated blood loss was average. Sponge, instrument and needle counts were correct. Mom and baby tolerated the procedure well. MD ROSA MARIA Beard/SHY , 11:02 AM , 11:23 AM
[2017-08-17] MEDS ORDERED: OXYTOCIN 30 UNITS-500ML PREMIX 500 ML ONE (11:31)
[2017-08-17] MEDS ORDERED: PHENYLEPH/NS 1000 MCG/10 ML SYR IV ONE (12:00)
[2017-08-17] MEDS ORDERED: ONDANSETRON HCL 4 MG/2 ML VIAL IV ONE (12:00)
[2017-08-17] MEDS ORDERED: ePHEDrine/NS 25 MG/5 ML SYRINGE IV ONE (12:00)
[2017-08-17] MEDS ORDERED: DEXAMETHASONE SOD PHOS 4 MG/ML VIAL IV ONE (12:00)
[2017-08-17] MEDS ORDERED: OXYTOCIN 10 UNIT/ML AMP IV ONE (12:00)
[2017-08-17] MEDS ORDERED: LACTATED RINGER'S 1000 ML INJ 1,000 ML IV SCH (15:56)
[2017-08-17] MEDS ORDERED: OXYTOCIN 30 UNITS-500ML PREMIX 500 ML IV PRN (16:00)
[2017-08-17] MEDS: IBUPROFEN 600 MG TAB PO PRN ×2 (17:33→23:58)
[2017-08-17] MEDS: DOCUSATE SODIUM 50 MG/SENNA 8.6 MG TAB PO PRN (20:08)
[2017-08-17] MEDS: oxyCODONE/ACETAMINOPHEN 5 MG/325 MG TAB PO PRN ×2 (20:10→23:58)
[2017-08-17 20:38] VITALS: BP 88/51; PULSE 62; RESP 18; TEMP 98
[2017-08-17] MEDS ORDERED: ZOLPIDEM TARTRATE 5 MG TAB PO PRN (21:00)
[2017-08-18 01:13] VITALS: BP 96/61; PULSE 62; RESP 17; TEMP 97.8
[2017-08-18] MEDS: LACTATED RINGER'S 1000 ML IV SCH ×2 (03:00→22:23)
[2017-08-18 05:01] VITALS: BP 99/62; PULSE 63; RESP 17; TEMP 97.6
[2017-08-18] MEDS: oxyCODONE/ACETAMINOPHEN 5 MG/325 MG TAB PO PRN ×3 (05:53→18:23)
[2017-08-18] MEDS: IBUPROFEN 600 MG TAB PO PRN ×3 (05:53→18:23)
[2017-08-18 05:54] LABS: BASOPHIL % 0.2 % (0.0-2.0); EOSINOPHIL % 0.4 % (0.0-4.0); HEMATOCRIT 27.3 % (35.0-46.0); HEMOGLOBIN 9.2 GM/DL (11.6-15.3); LYMPH % 18.3 % (9.0-44.0); MEAN CELL VOLUME 88.8 FL (80.0-100.0); MEAN CORPUSCULAR HEMOGLOBIN 29.9 PG (27.0-34.0); MEAN CORPUSCULAR HGB CONC 33.6 % (32.0-36.0); MEAN PLATELET VOLUME 10.3 FL (7.0-11.0); NEUT % 72.1 % (16.0-70.0); PLATELET COUNT 168 TH/MM3 (150-450); RED BLOOD COUNT 3.08 MIL/MM3 (4.00-5.30)
--- NOTE | 2017-08-18 08:48 | HHI.OB ---
Subjective Post Operative Day: 1 Remarks pt exhausted, baby did not sleep Objective Vitals/I&O Vital Signs Date Time Temp Pulse Resp B/P (MAP) Pulse Ox O2 Delivery O2 Flow Rate FiO2 08/18/17 05:01 97.6 63 17 99/62 (74) 08/18/17 01:13 97.8 62 17 96/61 (73) 08/17/17 20:38 98.0 62 18 88/51 (63) Result Diagram: 08/18/17 0447 Objective Remarks GENERAL: Well-nourished, well-developed patient. CARDIOVASCULAR: Regular rate and rhythm without murmurs, gallops, or rubs. RESPIRATORY: Breath sounds equal bilaterally. No accessory muscle use. ABDOMEN/GI: Abdomen soft, non-tender, bowel sounds present. Incision: dressing Clean, dry and intact. Fundus: Firm, non-tender at umbilicus. GENITOURINARY: Light to moderate bleeding. EXTREMITIES: No cyanosis or edema, non-tender, without signs of DVT. Medications and IVs Current Medications Medications (Trade) Dose Ordered Sig/Mario Route Start Time Stop Time Status Last Admin Lactated Ringer's 1,000 ml @ 150 mls/hr Q6H40M IV 08/17/17 07:00 08/17/17 08:45 (Bicitra Liq) 30 ml PRESSURIZATION MECHANIC PO 08/17/17 07:00 08/20/17 06:59 08/17/17 08:45 Cefazolin Sodium 1000 mg/Sodium Chloride 100 ml @ 200 mls/hr PRESSURIZATION MECHANIC IV 08/17/17 07:00 08/20/17 06:59 08/17/17 08:46 Lactated Ringer's 1,000 ml @ 100 mls/hr Q10H IV 08/17/17 15:56 08/18/17 11:55 Oxytocin 500 ml @ 100 mls/hr UNSCH X1 PRN IV 08/17/17 16:00 08/18/17 15:59 (NS Flush) 2 ml BID IV FLUSH 08/17/17 21:00 (NS Flush) 2 ml UNSCH PRN IV FLUSH 08/17/17 11:00 (Mylicon Chew) 80 mg QID PRN PO 08/17/17 11:00 (Tylenol) 650 mg Q6H PRN PO 08/17/17 11:00 08/17/17 17:33 (Motrin) 600 mg Q6H PRN PO 08/17/17 11:00 08/18/17 05:53 (Percocet 5-325 Mg) 1 tab Q4H PRN PO 08/17/17 11:00 08/18/17 05:53 (Percocet 5-325 Mg) 2 tab Q4H PRN PO 08/17/17 11:00 (Melia-Colace) 2 tab Q12H PRN PO 08/17/17 11:00 08/17/17 20:08 (Ambien) 5 mg HS PRN PO 08/17/17 21:00 (M-M-R Ii Inj) 0.5 ml ONCE ONCE SQ 08/18/17 16:00 08/18/17 16:01 (Boostrix Inj) 0.5 ml ONCE ONCE IM 08/18/17 16:00 08/18/17 16:01 (Zofran Odt) 4 mg Q6H PRN PO 08/17/17 11:00 ([facility] Nursing Information) NO SYSTEMIC NARCOTICS TO BE GIVEN FO... UNSCH PRN .XX 08/17/17 09:44 08/18/17 09:43 (Narcan Inj) 0.4 mg UNSCH PRN IV PUSH 08/17/17 09:44 08/18/17 09:43 (Benadryl Inj) 25 mg Q6H PRN IV PUSH 08/17/17 09:44 08/18/17 09:43 (Benadryl) 50 mg Q6H PRN PO 08/17/17 09:44 08/18/17 09:43 ([facility] Nursing Information) ALL NURSING DEPARTMENTS UNSCH PRN .XX 08/17/17 09:44 08/18/17 09:43 Assessment/Plan Problem List: (1) Delivered by section ICD Codes: Z38.01 - Single liveborn infant, delivered by Assessment and Plan s/p repeat c/s POD#1 post op care, OOB , advance diet Discharge Planning routine Attending Attestation pt seen by Cecilia Flores MD Aug 18, 2017 08:48
[2017-08-18] MEDS: DOCUSATE SODIUM 50 MG/SENNA 8.6 MG TAB PO PRN (11:34)
[2017-08-18] MEDS ORDERED: DIPHTH/TETANUS/ACEL PERTUSSIS (BOOSTER) 0.5 ML VIAL/PFS IM ONE (16:00)
[2017-08-18] MEDS ORDERED: MEASLES, MUMPS, RUBELLA VACCINE 0.5 ML VIAL SQ ONE (16:00)
[2017-08-18] MEDS: SODIUM CHLORIDE 0.9% FLUSH 10 ML FLUSH IV FLUSH SCH (21:00)
[2017-08-18 21:14] VITALS: BP 111/68; PULSE 77; RESP 17; TEMP 97.5
[2017-08-19] MEDS: oxyCODONE/ACETAMINOPHEN 5 MG/325 MG TAB PO PRN ×2 (00:06→05:55)
[2017-08-19] MEDS: DOCUSATE SODIUM 50 MG/SENNA 8.6 MG TAB PO PRN (00:06)
[2017-08-19] MEDS: IBUPROFEN 600 MG TAB PO PRN ×2 (00:07→05:56)
[2017-08-19] MEDS: LACTATED RINGER'S 1000 ML IV SCH ×2 (05:40→07:29)
[2017-08-19] MEDS: SODIUM CHLORIDE 0.9% FLUSH 10 ML FLUSH IV FLUSH SCH (07:28)
--- NOTE | 2017-08-19 09:08 | HHI.OB ---
Subjective Post Operative Day: 2 Remarks doing well, wants to go home Objective Vitals/I&O Vital Signs Date Time Temp Pulse Resp B/P (MAP) Pulse Ox O2 Delivery O2 Flow Rate FiO2 08/18/17 21:14 97.5 77 17 111/68 (82) Result Diagram: 08/18/17 0447 Objective Remarks GENERAL: Well-nourished, well-developed patient. CARDIOVASCULAR: Regular rate and rhythm without murmurs, gallops, or rubs. RESPIRATORY: Breath sounds equal bilaterally. No accessory muscle use. ABDOMEN/GI: Abdomen soft, non-tender, bowel sounds present. Incision: Clean, dry and intact. Fundus: Firm, non-tender at umbilicus. GENITOURINARY: Light to moderate bleeding. EXTREMITIES: No cyanosis or edema, non-tender, without signs of DVT. Medications and IVs Current Medications Medications (Trade) Dose Ordered Sig/Mario Route Start Time Stop Time Status Last Admin Lactated Ringer's 1,000 ml @ 150 mls/hr Q6H40M IV 08/17/17 07:00 08/17/17 08:45 (Bicitra Liq) 30 ml CHIEF DEVELOPMENT OFFICER PO 08/17/17 07:00 08/20/17 06:59 08/17/17 08:45 Cefazolin Sodium 1000 mg/Sodium Chloride 100 ml @ 200 mls/hr CHIEF DEVELOPMENT OFFICER IV 08/17/17 07:00 08/20/17 06:59 08/17/17 08:46 (NS Flush) 2 ml BID IV FLUSH 08/17/17 21:00 (NS Flush) 2 ml UNSCH PRN IV FLUSH 08/17/17 11:00 (Mylicon Chew) 80 mg QID PRN PO 08/17/17 11:00 (Tylenol) 650 mg Q6H PRN PO 08/17/17 11:00 08/17/17 17:33 (Motrin) 600 mg Q6H PRN PO 08/17/17 11:00 08/19/17 05:56 (Percocet 5-325 Mg) 1 tab Q4H PRN PO 08/17/17 11:00 08/18/17 05:53 (Percocet 5-325 Mg) 2 tab Q4H PRN PO 08/17/17 11:00 08/19/17 05:55 (Melia-Colace) 2 tab Q12H PRN PO 08/17/17 11:00 08/19/17 00:06 (Ambien) 5 mg HS PRN PO 08/17/17 21:00 (Zofran Odt) 4 mg Q6H PRN PO 08/17/17 11:00 Assessment/Plan Problem List: (1) Delivered by section ICD Codes: Z38.01 - Single liveborn infant, delivered by Assessment and Plan s/p repeat c/s POD#2 post op care, OOB , advance diet Discharge Planning routine Attending Attestation pt seen by Cecilia Flores MD Aug 19, 2017 09:08
[2017-08-19] MEDS ORDERED: OXYC1TAB63 PO (09:10)
[2017-08-19] MEDS ORDERED: IBUP-232 PO (09:10)
== END 2017-08-19 11:56 | disposition home or self-care (01) | DRG 766 ==
LOC: H2EB 05:38 → H1EA 12:20
PROVIDERS: ADMIT Obstetrics & Gynecology; ATTEND Obstetrics & Gynecology
PROC: 10D00Z1 Extraction of Products of Conception, Low, Open Approach (ICD-10-PCS; principal; 2017-08-17)
PROC: 0UB70ZZ Excision of Bilateral Fallopian Tubes, Open Approach (ICD-10-PCS; 2017-08-18)
DX: O34.211 Maternal care for low transverse scar from previous cesarean delivery (principal); O69.81X0 Labor and delivery complicated by cord around neck, without compression, not applicable or unspecified; Z37.0 Single live birth; Z3A.39 39 weeks gestation of pregnancy; Z72.0 Tobacco use; Z23 Encounter for immunization; Z30.2 Encounter for sterilization
CPT/HCPCS: 59025; 80307; 81001; 85025; 86850; 86900; 86901; 88302; 90715; J0131; J0690; J1100; J2274; J2370; J2405; J2590; J7120